=== PATIENT | male | born 1995 | race American Indian/Alaskan Native ===

== ENCOUNTER 2019-03-28 15:39 | Emergency (ER) | payer SELFPAY ==
[2019-03-28] MEDS ORDERED: BOOSTRIX IM ONE ×2 (15:50→18:29)
--- NOTE | 2019-03-28 15:50 | Event Note ---
ED Screening Note ED Screening Note: multiple lacerations to the right hand from glass mirror happened 45 min [employer] bleeding controlled at this time unsure of last tetanus This initial assessment/diagnostic orders/clinical plan/treatment(s) is/are subject to change based on patients health status, clinical progression and re- assessment by fellow clinical providers in the ED. Further treatment and workup at subsequent clinical providers discretion. Patient/guardian urged not to elope from the ED as their condition may be serious if not clinically assessed and managed. Initial orders include: XR right hand, tetanus
--- NOTE | 2019-03-28 16:17 | XRay Report ---
RIGHT HAND HISTORY: Cut by glass. Multiple lacerations. COMPARISON: None. TECHNIQUE: 3 views of the right hand were obtained. FINDINGS: Bones: No fracture or dislocation. However, a bandage on the dorsum of the hand obscures detail at t he fourth and fifth digits. Joint spaces: Maintained. Soft tissues: No significant abnormality. Additional findings: None. IMPRESSION: 1. No significant abnormality. Signer Name: Lul Bales MD Signed: 03/28/2019 4:13 PM Workstation Name: [id number]
[2019-03-28] MEDS ORDERED: NACL 0.9% 500 ML IR ONE (17:59)
[2019-03-28] MEDS ORDERED: XYLOCAINE 2% INFILTRATI ONE (18:30)
[2019-03-28] MEDS ORDERED: NORCO 5/325 PO ONE (19:34)
[2019-03-28] MEDS ORDERED: XYLOCAINE 1% MPF 5 mL INFILTRATI ONE (19:34)
--- NOTE | 2019-03-28 20:49 | Emergency Department Report ---
- General Chief Complaint: Wound/Laceration Stated Complaint: RT HAND LAC/PAIN Time Seen by Provider: 03/28/19 15:49 Source: patient Mode of arrival: Ambulatory Limitations: No Limitations - History of Present Illness Initial Comments: pt is a 23 y/o aam who presents for multiple lacerations to the right hand from glass mirror happened 45 min [employer] no nerve tendon or muscle damage bleeding controlled by self applied pressure, unsure of last tetanus Onset/Timin -: minutes(s) Location: other Extremity Location: Right: Hand (dorsal hand ) Place: home Patient Tetanus UTD: No Context: accidental Associated Symptoms: pain - Related Data Previous Rx's Medication Instructions Recorded Last Taken Type cephALEXin [Keflex] 500 mg PO Q8HR 10 Days #30 cap 03/28/19 Unknown Rx traMADol [Ultram] 50 mg PO Q6HR PRN #12 tablet 03/28/19 Unknown Rx Allergies Allergy/AdvReac Type Severity Reaction Status Date / Time No Known Allergies Allergy Unverified 03/28/19 15:41 ED Review of Systems ROS: Stated complaint: RT HAND LAC/PAIN Other details as noted in HPI Constitutional: denies: chills, fever Eyes: denies: eye pain, eye discharge, vision change ENT: denies: ear pain, throat pain Respiratory: denies: cough, shortness of breath, wheezing Cardiovascular: denies: chest pain, palpitations Endocrine: no symptoms reported Gastrointestinal: denies: abdominal pain, nausea, diarrhea Genitourinary: denies: urgency, dysuria Musculoskeletal: other (hand laceration ). denies: back pain, joint swelling, arthralgia Skin: denies: rash, lesions Neurological: denies: headache, weakness, paresthesias Psychiatric: denies: anxiety, depression Hematological/Lymphatic: denies: easy bleeding, easy bruising ED Past Medical Hx - Past Medical History Previous Medical History?: No - Surgical History Past Surgical History?: No - Social History Smoking Status: Current Every Day Smoker Substance Use Type: None - Medications Home Medications: Home Medications Medication Instructions Recorded Confirmed Last Taken Type cephALEXin [Keflex] 500 mg PO Q8HR 10 Days #30 cap 03/28/19 Unknown Rx traMADol [Ultram] 50 mg PO Q6HR PRN #12 tablet 03/28/19 Unknown Rx ED Physical Exam - General Limitations: No Limitations General appearance: alert, in no apparent distress - Head Head exam: Present: atraumatic, normocephalic - Eye Eye exam: Present: normal appearance, PERRL, EOMI Pupils: Present: normal accommodation - ENT ENT exam: Present: mucous membranes moist - Neck Neck exam: Present: normal inspection, full ROM. Absent: tenderness - Respiratory Respiratory exam: Present: normal lung sounds bilaterally. Absent: respiratory distress, wheezes, stridor, chest wall tenderness - Cardiovascular Cardiovascular Exam: Present: regular rate, normal rhythm, normal heart sounds. Absent: systolic murmur, diastolic murmur, rubs, gallop - GI/Abdominal GI/Abdominal exam: Present: soft, normal bowel sounds. Absent: distended, t enderness, bruit, hernia - Rectal Rectal exam: Present: deferred - Extremities Exam Extremities exam: Present: normal inspection, full ROM, normal capillary refill, other (right hand laceration). Absent: tenderness, joint swelling - Expanded Upper Extremity Exam Right Hand Wrist exam: Present: full ROM, abrasion, laceration (multiple small laceration no nerve tendon or muscle damage rom intact distal pulses intact cloth beamer <3 sec minimal bleeding ). Absent: tenderness, swelling, ecchymosis, deformity, crepidus, dislocation, erythema, amputation, nail avulsion, subungual hematoma Neuro motor exam: Present: wrist extension intact, thumb opposition intact, thumb IP flexion intact, thumb adduction intact, fingers 2-5 abduction intact Neurosensory exam: Present: 2-point discrimination, radial nerve intact, ulnar nerve intact, median nerve intact Vascular: Present: normal capillary refill, radial pulse, brachial pulse, ulnar pulse. Absent: pulse deficit radial art, pulse deficit ulnar art, pulse deficit brachial art - Back Exam Back exam: Present: normal inspection, full ROM. Absent: tenderness, CVA tenderness (R), CVA tenderness (L), rash noted - Neurological Exam Neurological exam: Present: alert, oriented X3, CN II-XII intact, normal gait, reflexes normal. Absent: motor sensory deficit - Psychiatric Psychiatric exam: Present: normal affect, normal mood - Skin Skin exam: Present: warm, dry, normal color, other (laceration hand as above ). Absent: rash ED Course Vital Signs 03/28/19 03/28/19 17:09 19:44 Temperature 98.6 F Pulse Rate 79 Respiratory 18 16 Rate Blood Pressure 134/68 O2 Sat by Pulse 98 Oximetry - Laceration /Wound Repair Right Dorsal Hand Wound Location: upper extremity Wound Length (cm): 2 (multiple small lacerations) Wound's Depth, Shape: superficial Wound Explored: no foreign body removed Irrigated w/ Saline (ccs): 250 Betadine Prep?: Yes Anesthesia: 1% Lidocaine Volume Anesthetic (ccs): 3 Wound Debrided: minimal Wound Repaired With: sutures Suture Size/Type: 4:0, proline Number of Sutures: 15 Layer Closure?: No Sterile Dressing Applied?: Yes Progress: wound cleaned with betadine solution anesthesia 1% lidocaine plain 3cc, wounds exploxed manually no foreign body wounds closed with 4.0 proline x 18 sutures, all bleeding controlled sterile dressing applied, pt tolerated procedure with minimal distress. ED Medical Decision Making - Radiology Data Radiology results: report reviewed, image reviewed Ordering Physician: RADHA KURTZ Date of Service: 03/28/19 Procedure(s): XR hand 3+V RT Accession Number(s): [id number] cc: RADHA KURTZ Fluoro Time In Minutes: RIGHT HAND HISTORY: Cut by glass. Multiple lacerations. COMPARISON: None. TECHNIQUE: 3 views of the right hand were obtained. FINDINGS: Bones: No fracture or dislocation. However, a bandage on the dorsum of the hand obscures detail at the fourth and fifth digits. Joint spaces: Maintained. Soft tissues: No significant abnormality. Additional findings: None. IMPRESSION: 1. No significant abnormality. Signer Name: Lul Dong MD Signed: 03/28/2019 4:13 PM Workstation Name: [id number] Transcribed By: REF Dictated By: LUL DONG MD Electronically Authenticated By: LUL DONG MD Signed Date/Time: 03/28/19 1613 DD/ 1611 TD/TT: - Medical Decision Making wound closed see procedure note pt given wound care instructions plan follow up with pcp in 2 days for wound check, 7-10 days for suture removal, keflex, ultram pt dc'd to home in stable condition there is no muscle nerve or tendon damage. Critical care attestation.: If time is entered above; I have spent that time in minutes in the direct care of this critically ill patient, excluding procedure time. ED Disposition Clinical Impression: Laceration of hand Qualifiers: Encounter type: initial encounter Foreign body presence: without foreign body Laterality: right Qualified Code(s): S61.411A - Laceration without foreign body of right hand, initial encounter Disposition: TO HOME OR SELFCARE Is pt being admited?: No Does the pt Need Aspirin: No Condition: Stable Instructions: Laceration (ED), Suture Care (ED) Prescriptions: cephALEXin [Keflex] 500 mg PO Q8HR 10 Days #30 cap traMADol [Ultram] 50 mg PO Q6HR PRN #12 tablet PRN Reason: Pain Referrals: PRIMARY CARE,MD [Primary Care Provider] - 3-5 Days Forms: Work/School Release Form(ED) Time of Disposition: 21:02
[2019-03-28 22:48] VITALS: BP 128/70
== END 2019-03-28 21:30 | disposition home or self-care (01) ==
LOC: ED 15:39
DX: S61.411A Laceration without foreign body of right hand, initial encounter (principal); F17.200 Nicotine dependence, unspecified, uncomplicated; Z79.899 Other long term (current) drug therapy; W25.XXXA Contact with sharp glass, initial encounter; Y93.89 Activity, other specified; Y92.89 Other specified places as the place of occurrence of the external cause; Y99.8 Other external cause status
CPT/HCPCS: 90471; 90715